=== PATIENT | female | born 1970 | race Caucasian/White ===

== ENCOUNTER 2018-12-05 00:35 | Emergency (ER) | payer MEDICAID ==
[~2018-12-05 00:35] MED LIST: LISI-167 PO
[2018-12-05 00:39] VITALS: BP 156/91
[2018-12-05] MEDS ORDERED: FLUCONAZOLE 50 MG TABLET PO ONE (03:30)
[2018-12-05 03:40] LABS: ALBUMIN 3.6 g/dL (3.4-5.0); ANION GAP 9 mmol/L (5-15); CALCIUM 8.9 mg/dL (8.5-10.1); CHLORIDE 104 mmol/L (98-107); CREATININE 0.66 mg/dL (0.55-1.02)
[2018-12-05 03:50] LABS: ACETONE, SERUM Small (20mg/dL) mg/dL (Negative)
== END 2018-12-05 04:32 | disposition home or self-care (01) ==
LOC: ED 04:15
DX: B37.3 Candidiasis of vulva and vagina (principal); J45.909 Unspecified asthma, uncomplicated; E11.9 Type 2 diabetes mellitus without complications; I10 Essential (primary) hypertension
CPT/HCPCS: 36415; 80048; 82010; 82040; 99283

== ENCOUNTER 2019-01-22 08:23 | Emergency (ER) | payer MEDICAID ==
[~2019-01-22] VITALS: Ht 165.1 cm; Wt 68.0 kg
--- NOTE | 2019-01-22 08:51 | NUR ---
BREAK RN FOR PRIMARY RN'S [place]. FSBS COMPLETED PER MARGARITA MCCONNELL, RESULT 225, REPORTED TO MARGARITA, AWARE, NO NEW ORDERS RECEIVED. 48 Y/O F "I'M HERE FOR A RED LINE DOWN MY LEFT PINKY, BEEN THERE 10 DAYS, HURTS MY WHOLE ENTIRE ARM, I BURNT IT ON A BOWL, THEN THE WOUND OPENED, CLOSED UP USING TRIPLE ANTIBIOTIC OINTMENT AND THEN 10 DAYS AGO THIS RED LINE." CMS INTACT. RED STREAK NOTED TO LEFT PINKY. NO OPEN WOUND NOTED. RADIAL PULSE NORMAL AND STRONG. SKIN PWD, NO SWELLING NOTED. CONT PULSE OX,BP MONITORS APPLIED. PER MARGARITA MCCONNELL PT DOESN'T NEED TO BE PLACED IN GOWN. PT RESTING IN POSITION OF COMFORT ON ED GURNEY. CALL LIGHT IN REACH. FALL PERCAUTIONS IN PLACE.
[2019-01-22] MEDS ORDERED: METF500T9 PO (09:14)
[2019-01-22] MEDS ORDERED: GABA100C PO (09:14)
[2019-01-22] MEDS ORDERED: ALBU8.5H8 INH (09:15)
[2019-01-22] MEDS ORDERED: ALBU6.7H INH (09:16)
--- NOTE | 2019-01-22 09:16 | NUR ---
BEDSIDE REPORT AND CARE TO PRITI RN'S AT THIS TIME.
[2019-01-22 09:30] VITALS: BP 148/86
== END 2019-01-22 09:34 | disposition home or self-care (01) ==
LOC: ED 08:59
DX: L03.032 Cellulitis of left toe (principal); I10 Essential (primary) hypertension; J45.909 Unspecified asthma, uncomplicated; E11.40 Type 2 diabetes mellitus with diabetic neuropathy, unspecified
CPT/HCPCS: 82962; 99283